=== PATIENT | male | born 1945 | race Caucasian/White ===

== ENCOUNTER 2023-07-17 15:09 | Inpatient (IN) | payer MEDICARE, BC ==
[~2023-07-17] VITALS: Ht 162.6 cm; Wt 72.4 kg
[2023-07-17] MEDS ORDERED: DESYREL50 MG PO (16:23)
[2023-07-17] MEDS ORDERED: VALSARTAN80 MG PO (16:23)
[2023-07-17] MEDS ORDERED: ROSUVASTATIN CA40 MG PO (16:24)
[2023-07-17] MEDS ORDERED: ISOSORBIDE MON120 MG PO (16:24)
[2023-07-17] MEDS ORDERED: FERROUS SULFAT325 M4 PO (16:24)
[2023-07-17] MEDS ORDERED: ESCITALOPRAM20 MG PO (16:24)
[2023-07-17] MEDS ORDERED: EZETIMIBE10 M1 PO (16:25)
[2023-07-17] MEDS ORDERED: ENOXAPARIN80 MG/0.1 SQ (16:25)
[2023-07-17] MEDS ORDERED: RANOLAZINE ER500 MG PO (16:25)
[2023-07-17] MEDS ORDERED: Polyethylene Glycol 3350 Powder 17 GM PACKET PO PRN (16:30)
[2023-07-17] MEDS ORDERED: Acetaminophen 500 MG TAB PO PRN (16:30)
[2023-07-17] MEDS ORDERED: CLOPIDOGREL75 M2 PO (16:31)
[2023-07-17] MEDS ORDERED: Docusate Sodium 100 MG CAP PO PRN (16:45)
[2023-07-17] MEDS ORDERED: ceFAZolin 2 G in Water For Injection,Sterile 20 ML IV SCH ×2 (16:45→19:00)
[2023-07-17 16:54] VITALS: BP 163/77
[2023-07-17] MEDS ORDERED: Losartan 50 MG TAB PO SCH (21:00)
[2023-07-17] MEDS ORDERED: Atorvastatin 20 MG TAB PO SCH (21:00)
[2023-07-17] MEDS ORDERED: traZODone 50 MG TAB PO SCH (21:00)
[2023-07-17] MEDS ORDERED: Escitalopram 10 MG TAB PO SCH (21:00)
[2023-07-17] MEDS ORDERED: Ranolazine ER 500 MG TAB PO SCH (21:00)
[2023-07-17] MEDS ORDERED: Ezetimibe 10 MG TAB PO SCH (21:00)
[2023-07-18 05:59] VITALS: BP 131/72
[2023-07-18 07:42] LABS: BASO # 0.01 K/mm3 (0.02-0.10); EOS # 0.34 K/mm3 (0.04-0.40); EOS % 4.7 % (0.0-4.0); HEMOGLOBIN 9.4 g/dL (13.5-18.0); LYMPH# 1.15 K/mm3 (1.50-4.00); MEAN CELL VOLUME 90 fl (78-100); MEAN CORPUSCULAR HEMOGLOBIN 29 pg (27-31); MEAN CORPUSCULAR HGB CONC 32 g/dL (33-37); MONO # 0.66 K/mm3 (0.20-0.80); NEU # 4.99 K/mm3 (1.40-6.50); PLATELET COUNT 369 K/mm3 (130-400); RED BLOOD COUNT 3.23 M/mm3 (4.20-5.60); RED CELL DISTRIBUTION WIDTH 15.9 % (11.5-14.5); WHITE BLOOD COUNT 7.3 K/mm3 (4.8-10.8)
[2023-07-18 07:54] LABS: ALBUMIN 3.3 g/dL (3.4-4.8)
[2023-07-18 07:55] LABS: CALCIUM 8.7 mg/dL (8.3-10.5)
[2023-07-18 07:58] LABS: TOTAL BILIRUBIN 0.4 mg/dL (0.2-1.2)
[2023-07-18] MEDS ORDERED: Clopidogrel 75 MG TAB PO SCH (09:00)
[2023-07-18] MEDS ORDERED: Isosorbide Mononitrate ER (24-HR) 60 MG TAB PO SCH (09:00)
[2023-07-18] MEDS ORDERED: Ferrous Sulfate 325 MG TAB PO SCH (09:00)
[2023-07-18 18:03] VITALS: BP 115/66
[2023-07-19 05:51] VITALS: BP 132/76
[2023-07-19 17:20] VITALS: BP 120/66
[2023-07-20 06:25] VITALS: BP 125/72
[2023-07-20 08:30] VITALS: BP 156/78
[2023-07-20 17:16] VITALS: BP 127/64
[2023-07-21 05:12] VITALS: BP 134/72
[2023-07-21 17:21] VITALS: BP 128/62
[2023-07-22 05:40] VITALS: BP 130/71
[2023-07-22 18:17] VITALS: BP 132/66
[2023-07-23 05:48] VITALS: BP 122/73
[2023-07-23] MEDS ORDERED: Loperamide 2 MG CAP PO PRN (08:30)
[2023-07-23 15:47] VITALS: BP 117/66
[2023-07-24 05:26] VITALS: BP 129/70
[2023-07-24 17:10] VITALS: BP 112/62
[2023-07-25 05:55] VITALS: BP 121/69
[2023-07-25 17:47] VITALS: BP 148/70
[2023-07-26 05:22] VITALS: BP 121/75; BP 125/70
[2023-07-26 17:47] VITALS: BP 134/71
[2023-07-27 05:37] VITALS: BP 136/75
[2023-07-27 18:30] VITALS: BP 134/64
[2023-07-28 06:05] LABS: BASO # 0.02 K/mm3 (0.02-0.10); EOS # 0.32 K/mm3 (0.04-0.40); HEMATOCRIT 33.9 % (42.0-52.0); HEMOGLOBIN 10.8 g/dL (13.5-18.0); MEAN CELL VOLUME 91 fl (78-100); MEAN CORPUSCULAR HEMOGLOBIN 29 pg (27-31); MEAN CORPUSCULAR HGB CONC 32 g/dL (33-37); MEAN PLATELET VOLUME 8.5 fl (7.4-10.4); MONO # 0.38 K/mm3 (0.20-0.80); PLATELET COUNT 307 K/mm3 (130-400); RED BLOOD COUNT 3.71 M/mm3 (4.20-5.60); RED CELL DISTRIBUTION WIDTH 16.8 % (11.5-14.5); WHITE BLOOD COUNT 5.3 K/mm3 (4.8-10.8)
[2023-07-28 06:09] VITALS: BP 131/81
[2023-07-28 06:36] LABS: ALBUMIN 3.6 g/dL (3.4-4.8)
[2023-07-28 06:37] LABS: CALCIUM 9.1 mg/dL (8.3-10.5)
[2023-07-28 06:38] LABS: TOTAL PROTEIN 6.3 g/dL (6.2-8.1)
[2023-07-28 06:40] LABS: TOTAL BILIRUBIN 0.4 mg/dL (0.2-1.2)
[2023-07-28] MEDS ORDERED: LIPITOR 80MG80 MG PO (11:57)
[2023-07-28] MEDS ORDERED: COZAAR 50MG50 MG/TAB PO (11:58)
== END 2023-07-28 12:26 | disposition home health service (06) | DRG 948 ==
LOC: MED/SURG 15:09
PROVIDERS: Family Medicine; ADMIT Physician Assistant
DX: R53.81 Other malaise (principal); R78.81 Bacteremia; I25.10 Atherosclerotic heart disease of native coronary artery without angina pectoris; I25.2 Old myocardial infarction; D64.9 Anemia, unspecified; G47.30 Sleep apnea, unspecified; Z79.01 Long term (current) use of anticoagulants; Z95.0 Presence of cardiac pacemaker; Z91.81 History of falling; Z86.718 Personal history of other venous thrombosis and embolism; Z86.16 Personal history of COVID-19; I10 Essential (primary) hypertension
CPT/HCPCS: J0690; J1650